=== PATIENT | male | born 1975 | race Caucasian/White ===

== ENCOUNTER 2022-04-12 15:56 | Outpatient (CLI) | payer OTHER, SELFPAY ==
[2022-04-12 22:05] LABS: Albumin* 4.4 g/dL (3.3-5.0)
[2022-04-12 22:06] LABS: Chloride* 106 mmol/L (96-114); Potassium* 4.3 mmol/L (3.6-5.1); Sodium* 141 mmol/L (135-149)
[2022-04-12 22:08] LABS: Cholesterol* 195 mg/dL (90-199); Creatinine* 1.1 mg/dL (0.5-1.5); Estimated Glomerular Filt Rate 84 ml/min
[2022-04-12 22:09] LABS: Alanine Aminotransferase* 41 U/L (4-50); Alkaline Phosphatase* 69 U/L (40-150); Aspartate Amino Transferase* 29 U/L (12-35); Bilirubin Total* 0.5 mg/dL (0.1-1.5); Blood Urea Nitrogen* 21 mg/dL (5-24); Calcium* 9.7 mg/dL (8.4-10.6); Carbon Dioxide* 28 mmol/L (20-32); Glucose* 90 mg/dL (60-115); Total Protein* 6.8 g/dL (6.0-8.3); Triglycerides* 284 mg/dL (40-149)
[2022-04-12 22:10] LABS: HDL Cholesterol* 42 mg/dL (>=40); LDL Cholesterol Calculated 96 mg/dL (<100)
[2022-04-12 22:56] LABS: Hepatitis C Virus Antibody* Negative (Negative)
== END 2022-04-12 15:57 | disposition home or self-care (01) ==
PROVIDERS: PCP Family Medicine; Visit Provider Family Medicine
DX: Z00.00 Encounter for general adult medical examination without abnormal findings (principal); Z11.59 Encounter for screening for other viral diseases; Z13.6 Encounter for screening for cardiovascular disorders
CPT/HCPCS: 80053; 80061; 86803

== ENCOUNTER 2022-05-14 07:48 | Outpatient (CLI) | payer OTHER, SELFPAY | END 2022-05-14 07:49 | disposition home or self-care (01) | LOC: OP CLINIC 07:50 | PROVIDERS: PCP Family Medicine; Visit Provider Internal Medicine | DX: Z12.11 Encounter for screening for malignant neoplasm of colon (principal); K63.5 Polyp of colon | CPT/HCPCS: 45381; 45385; 88305; 99153; J2250; J3010 ==

== ENCOUNTER 2023-05-20 07:53 | Outpatient (CLI) | payer OTHER, SELFPAY ==
--- OUTSIDE RECORDS SUMMARY | 2023-05-20 07:56 | XMS_ITS | Continuity of Care Document ---
Author Name Unknown Organization [facility] Address [address] [place] [address] Phone Care Team Providers Care Bereavement Program Coordinator Name Role Phone Guzman MAGALLANES MD, Quinn Unavailable Unavailable Advance Directives Directive Yes / No Effective Date File Name No Information Encounters Encounter Description Practice Location Reason(s) For Visit Diagnoses Date Provider Providers Copied on Encounter [facility], [address], [place], [place], [id number], [place] tel:[phone] No Information Guzman MAGALLANES Quinn. [address], [facility] [place], [place], [facility], [place]. tel:[phone] Referring Provider: Louis Murdock MD, [address] [place], [place], [facility]. tel:[phone] Family History Family Member Type Diagnosis Age At Onset No Information Payers Payer name Insurance type Covered alliance party ID Authoriza tion(s) [facility] [id number] [employer] [id number] Social History Type Description Quantity Date Captured Comments Sex Male Smoking Status No Information Chief Complaint And Reason For Visit No Information Reason For Referral Reason For Referral No Information History Of Present Illness Encounter Date Complaint History Of Prese nt Illness No Information Functional Status Date Functional Assessmen t No Information Instructions Date Instruction Additional Infor mation No Information Assessments Type Assessment Date No Information Patient Care Teams Name Effective Dates (start - stop) Status Members No Information
--- NOTE | 2023-05-20 09:44 | W.ANESCHARGE ---
Anesthesia Charges Start Date/Time Anesthesia Start Date: 05/20/23 Anesthesia Start Time: 09:14 Stop Date/Time Anesthesia Stop Date: 05/20/23 Anesthesia Stop Time: 09:43
== END 2023-05-20 07:54 | disposition home or self-care (01) ==
LOC: OP CLINIC 07:54
PROVIDERS: PCP Family Medicine; Visit Provider Surgery
DX: K63.5 Polyp of colon (principal); Z86.010 Personal history of colon polyps
CPT/HCPCS: 00811; 45385; 88305; J2704

== ENCOUNTER 2024-06-06 21:15 | Emergency (ER) | payer OTHER, SELFPAY ==
--- OUTSIDE RECORDS SUMMARY | 2024-06-06 21:17 | XMS_ITS | Clinical Summary ---
Author Organization [employer] [employer] [facility] Address [place], [place] [address] Care Team Providers Care Licensed Plumber Name Role Phone Pcp, No Primary Care Provider Unavailabl e Allergies Active Allergy Reactions Criticality Noted Date Comments Acetaminophen-Codeine Tongue Swelling High Medications AMOXICILLIN 875 MG TABIndications:Ac [place] pharyngitis 1 po bid 20 0 01/01/2008 Active omeprazole (PRILOSEC) 40 mg Delayed-Release capsule Take 40 mg by mouth once daily. 03/03/2023 Active Active Problems Problem Noted Date Diagnosed Date PAIN IN OR AROUND EYE-R 02/22/2005 Immunizations Name Administration Dates Next Due MMR 03/26/1999 Td (Age >=7 Years) 03/23/1999 Social History Tobacco Use Types Packs/Day Years Used Date Smoking Tobacco: Never Alcohol Use Standard Drinks/Week Comments Not Asked 0 (1 standard drink = 0.6 oz pur e alcohol) Alcoholic Drinks/day: <1 Sex and Gender Information Value Date Recorded Sex Assigned at Not on file Legal Sex Male 6:20 AM SBA BUSINESS DEVELOPMENT OFFICER Gender Identity Not on file Sexual Orientation Not on file Obstetrics History Last Filed Vital Signs Vital Sign Reading Time Taken Comments Blood Pressure 124/76 04/13/2023 7:28 PM SBA BUSINESS DEVELOPMENT OFFICER Pulse 62 04/13/2023 7:28 PM SBA BUSINESS DEVELOPMENT OFFICER Temperature 36.2 C (97.2 F) 04/13/2023 7:28 PM SBA BUSINESS DEVELOPMENT OFFICER Respiratory Rate 14 04/13/2023 7:28 PM SBA BUSINESS DEVELOPMENT OFFICER Oxygen Saturation 97% 04/13/2023 7:28 PM SBA BUSINESS DEVELOPMENT OFFICER Inhaled Oxygen Concentration - - Weight 100.7 kg (222 lb) 04/13/2023 7:28 PM SBA BUSINESS DEVELOPMENT OFFICER Height 190.5 cm (6' 3) 11/22/2000 12:00 AM CDT Body Mass Index - - Plan of Treatment Health Maintenance Due Date Last Done Comments Tdap 12/20/1986 Depression screening for age 12+ 1987 HIV for age 15-65 12/20/1990 BMI (ht and wt on same day) for age 18+ 12/20/1993 Hepatitis C screening for ag e 18-79 12/20/1993 Tetanus booster 03/23/2009 03/23/1999 Colonoscopy through age 75 12/20/2020 Lipids for age 45-75 12/20/2020 COVID-19 vaccine series (2023- season) 2024 Influenza for age 9-49 01/22/2024 Pneumococcal series for age 6-49 Aged Out No longer eligible based on patient's age to complete this topic Care Teams Licensed Plumber Relationship Specialty Start Date End Date Pcp, No . PCP - General 04/13/23
[2024-06-06 21:39] VITALS: BP 119/71; PULSE 60; RESP 16; TEMP 36.3; O2SAT 98; BMI 30.2
[2024-06-06 22:30] LABS: PCR FLU A POSITIVE PCR FLU A (Negative); PCR FLU B Negative PCR FLU B (Negative); PCR RSV Negative PCR RSV (Negative); SARS PCR* Negative SARS-CoV-2 (Negative)
--- NOTE | 2024-06-06 23:32 | ED.GENADULT ---
HPI - General Adult General Date Seen: 06/06/24 Chief complaint: Skin/Abscess/Foreign Body Stated complaint: rash arms/trunk/legs Time Seen by Provider: 06/06/24 22:02 History of Present Illness HPI narrative: 48-year-old male who has a history of GERD, otherwise generally healthy. He recalls that he had a rash on his torso previously when he had COVID. He presents to the ER today for evaluation of rash that began this evening. He has actually been sick since last Tuesday or Tuesday with symptoms of influenza. He has had nasal congestion, cough, sore throat, body aches, and some fever and chills. His most sick day with the most fatigue was actually 4 days ago on Tuesday and his BA getting slowly better since then. He has not been taking any other new medications. No new foods. No other unusual activities today. This evening, he began to develop a pruritic, erythematous, slightly raised rash on his left lateral chest wall and since then it has spread across his entire anterior chest, the medial aspect of his upper arms and a few spots on his lower legs. No rash on his face. No swelling in his mouth. No trouble breathing. No lightheadedness or dizziness. No abdominal pain or nausea. He had a similar rash with previous COVID infection so came here to the ER concerned that he might have COVID. He also notes that he has multiple family members with autoimmune disease. He has never personally been diagnosed with autoimmune disease. Related Data Previous Rx's ?Medication ?Instructions ?Recorded famotidine 40 mg tablet 40 mg PO QHS #90 tabs 02/06/24 omeprazole 40 mg capsule,delayed 40 mg PO DAILY #90 caps 02/06/24 release Allergies Allergy/AdvReac Type Severity Reaction Status Date / Time codeine Allergy Intermediate Swelling Verified 06/06/24 21:43 of Lip/Tongue/Throat [facility] Medical History Gastroesophageal reflux disease ?K21.9 - Gastro-esophageal reflux disease without esophagitis (ICD-10) Surgical History H/O vasectomy ?Z98.52 - Vasectomy status (ICD-10) History of tonsillectomy and adenoidectomy ?Z90.89 - Acquired absence of other organs (ICD-10) History of nasal septoplasty ?Z98.890 - Other specified postprocedural states (ICD-10) Family History Other Michael disease Booker's thyroiditis Multiple sclerosis Social History Narrative: Non smoker Social alcohol drinker Does not use illicit drugs Problems where you live: no known problems In the past 12 months, utilities in danger of being shut off: no In past 12 months, lack of transportation kept you from medical appts, meetings, work, or getting things needed for daily living: no In the past 12 mos, have been you worried that your food would run out before you had money to buy more?: never true In the past 12 mos, the food you bought just didn't last and you didn't have money to buy more?: never true Smoking Status: Never smoker Second hand tobacco smoke exposure: No How often do you have a drink containing alcohol: never AUDIT-C Alcohol total score: 0 Non-prescribed substance use: denies use How often does anyone, including family, friends and others, physically hurt you: never How often does anyone, including family, friends and others, insult or talk down to you: never How often does anyone, including family, friends and others, threaten you with harm: never How often does anyone, including family, friends and others, scream or curse at you: never Exam Narrative: Exam Narrative: Constitutional: Appears well-developed and well-nourished. Sleeping as I entered the room but easily aroused.. Conversant. Non toxic. HENT: Head: Atraumatic. Nose: Nose normal. Mouth/Throat: Oral mucosa is clear and moist. no trismus. Pharynx normal. Tonsils symmetric. No tonsillar enlargement, erythema, or exudate. Eyes: Conjunctivae normal. EOM normal. Pupils equal, round, and reactive to light. No scleral icterus. Neck: Normal range of motion. Neck supple. No tracheal deviation present. Cardiovascular: Normal rate, regular rhythm. No gallop. No friction rub. No murmur heard. Symmetric radial artery pulses Pulmonary/Chest: Effort normal. No stridor. No respiratory distress. No wheezes. No rales. No rhonchi . No tenderness. Abdominal: Soft. Bowel sounds normal. No distension. No mass. No tenderness. No rebound. No guarding. Musculoskeletal: RUE: Normal range of motion. No tenderness. No deformity LUE: Normal range of motion. No tenderness. No deformity RLE: Normal range of motion. No edema. No tenderness. No deformity LLE: Normal range of motion. No edema. No tenderness. No deformity Lymph: No cervical adenopathy. Neurological: Alert and oriented to person, place, and time. Normal strength. CN II-VII intact. No sensory deficit. GCS eye subscore is 4. GCS verbal subscore is 5. GCS motor subscore is 6. Normal coordination Skin: There is an erythematous, pruritic, slightly raised urgent care rash affecting the patient's chest, medial upper arms, upper abdomen, with scattered lesions on the patient's anterior and distal thighs. Rash consistent with hives. No pustules or vesicles. No petechiae or purpura. No desquamation.. No pallor. Normal capillary refill. Psychiatric: Normal mood. Normal affect. Const: Vital Signs, click to edit/add: Vital Signs - 24 hr 06/06/24 21:39 06/06/24 23:59 06/07/24 00:00 Temperature 97.3 F L 97.9 F 97.9 F Pulse Rate [Pulse Oximeter] 60 65 65 Respiratory Rate 16 16 16 Blood Pressure [[facility] Upper Arm] 119/71 115/70 115/70 Pulse Oximetry 98 98 Oxygen Delivery Me thod Room Air Room Air Course Vital Signs Vital signs: Initial Vital Signs Temperature 97.3 F L 06/06/24 21:39 Temperature Source Temporal Artery Scan 06/06/24 21:39 Pulse Rate 60 06/06/24 21:39 Respiratory Rate 16 06/06/24 21:39 Blood Pressure 119/71 06/06/24 21:39 Blood Pressure Mean 87 06/06/24 21:39 Blood Pressure Position Sitting 06/06/24 21:39 Pulse Oximetry 98 06/06/24 21:39 Oxygen Delivery Method Room Air 06/06/24 21:39 Vital Signs Temperature 97.3 F L 06/06/24 21:39 Pulse Rate 60 06/06/24 21:39 Respiratory Rate 16 06/06/24 21:39 Blood Pressure 119/71 06/06/24 21:39 Pulse Oximetry 98 06/06/24 21:39 Oxygen Delivery Method Room Air 06/06/24 21:39 Temperature 97.9 F 06/07/24 00:00 Pulse Rate 65 06/07/24 00:00 Respiratory Rate 16 06/07/24 00:00 Blood Pressure 115/70 06/07/24 00:00 Pulse Oximetry 98 06/06/24 23:59 Oxygen Delivery Method Room Air 06/06/24 23:59 Medications Administered Medications: Discontinued Medications Generic Name Dose Route Start Last Admin Trade Name Freq PRN Reason Stop Dose Admin Dexamethasone 10 mg 06/06/24 23:45 06/06/24 23:50 Dexamethasone 10 Mg/Ml Inj PO 06/06/24 23:46 10 mg ONCE ONE Administration Medical Decision Making MDM Narrative Medical decision making narrative: This patient presents for evaluation of an urticarial rash that started this evening.. Patient had similar rashes in the past when he had coronavirus infection. Today nasal PCR is actually positive for influenza A. In terms of influenza he has had symptoms consistent with that and they are now improving. He would be outside the 48 hour window where he would expect any benefit from Tamiflu so would hold off. I suspect that this rash is probably immune related, probably because of his recent viral infection. He had good response with his previous COVID related rashes when he was given a dose of steroids in the ER. Decadron 10 mg p.o. administered here. He had already taken Benadryl for the itching at home. No airway involvement, bronchospasm, GI symptoms, hypotension, or other sign of anaphylaxis. Patient was treated here with medications as noted above. Given his clinical history with similar rashes, lack of serious systemic symptoms, lack of respiratory difficulty and no oral or pharyngeal swelling, would not admit at this time for anaphylaxis. There is no signs of anaphylactic shock. Rash not really consistent with Hoang Adarsh's, toxic epidermal neck is lysis, staph scalded skin syndrome, scarlet fever, meningococcus, or other life-threatening infection. Lab Data Labs: Lab Results 06/06/24 Range/Units 21:44 SARS-CoV-2 (PCR) Negative SARS-CoV-2 (Negative) Influenza Type A (PCR) POSITIVE PCR FLU A A (Negative) Influenza Type B (PCR) Negative PCR FLU B (Negative) RSV (PCR) Negative PCR RSV (Negative) Discharge Plan Discharge Clinical Impression: Hives, Influenza A Patient Disposition: Home, Self-Care Condition: Stable Instructions: Urticaria (ED), Influenza (ED) Additional Instructions: As we discussed, use Benadryl every 6 hours okay if needed for itching or rash. If you have worsening rash, trouble breathing, or any concerns, please come back to the ER right away To treat influenza, keep doing a good job of staying hydrated. Rest. You should stay home from work until you have been afebrile for 24 hours an UR overall, feeling better. Use Tylenol or ibuprofen if needed for fever. Please recheck with your regular doctor within 1 week. You may want to ask your doctor to do some labs to check for autoimmune diseases given these recurrent bouts of hives associated with viral illnesses. Prescriptions: No Action omeprazole 40 mg capsule,delayed release(DR/EC) 40 mg PO DAILY Qty: 90 3RF famotidine 40 mg tablet 40 mg PO QHS Qty: 90 3RF Follow Up/Referrals: Kendell Verdugo MD [Primary Care Provider] - Stand Alone Forms: [employer] Info Instructions
[2024-06-06] MEDS: dexAMETHasone 10 MG/ML inj PO (23:50)
--- OUTSIDE RECORDS SUMMARY | 2024-06-06 23:52 | XMS_ITS | Clinical Summary ---
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..] age to complete this topic Care Teams Mobile Development Manager Relationship Specialty Start Date End Date Pcp, No . PCP - General 04/13/23
--- OUTSIDE RECORDS SUMMARY | 2024-06-06 23:52 | XMS_ITS | Continuity of Care Document ---
Author Name [email or web address] Address Unknown Organization Unknown Address Unknown Procedures FILTER APPLIED:Only known Procedures with Onset Date within the last 5 years Procedure Date Procedure Provider Additional Inform ation Status COLONOSCOPY W/LESION REMOVAL (51805) Completed ANES LWR INTST NDSC NOS (30556) Completed Encounters FILTER APPLIED:Only known Encounters with Admission Date within the last 5 years Encounter Location Admission Discharge Billing Code [facility] Satya mason Outpatient Kendell Verdugo Outpatient Roxie Bowie
[2024-06-06 23:59] VITALS: BP 115/70; PULSE 65; RESP 16; TEMP 36.6; O2SAT 98
[2024-06-07] VITALS: BP 115/70; PULSE 65; RESP 16; TEMP 36.6
== END 2024-06-07 00:16 | disposition home or self-care (01) ==
PROVIDERS: Emergency Provider Emergency Medicine; PCP Family Medicine
DX: J10.1 Influenza due to other identified influenza virus with other respiratory manifestations (principal); L50.9 Urticaria, unspecified
CPT/HCPCS: 87631; 99283; J1100

== ENCOUNTER 2025-04-10 08:56 | Outpatient (CLI) | payer OTHER, SELFPAY | END 2025-04-10 08:57 | disposition home or self-care (01) | PROVIDERS: PCP Family Medicine; Visit Provider Family Medicine | DX: G47.61 Periodic limb movement disorder (principal); K21.9 Gastro-esophageal reflux disease without esophagitis; E78.2 Mixed hyperlipidemia; E55.9 Vitamin D deficiency, unspecified | CPT/HCPCS: 80048; 80061; 82306; 82728; 85025 ==